=== PATIENT | male | born 1965 | race Caucasian/White ===

== ENCOUNTER → 2019-11-25 12:48 | Outpatient (CLI) | payer OTHER, MEDICAID, SELFPAY | PROVIDERS: PCP Student in an Organized Health Care Education/Training Program; Referring Provider Student in an Organized Health Care Education/Training Program; Visit Provider Student in an Organized Health Care Education/Training Program | DX: R07.89 Other chest pain (principal); R10.13 Epigastric pain | CPT/HCPCS: 93017 ==